=== PATIENT | male | born 1940 | race Hispanic/Latino ===

== ENCOUNTER 2019-01-07 15:20 | Emergency (ER) | payer MEDICARE ==
--- NOTE | 2019-01-07 16:30 | RAD ---
XR Hand Lt 3 View STANDARD History: Laceration Comparison: None. Findings: No acute fracture or malalignment. On the lateral radiograph there is a 2 x 5 mm linear rad iopacity at the volar wrist although likely extrinsic to patient versus a surgical clip. Mild vascular calcifications. Impression: No acute osseous abnormality.
[2019-01-07] MEDS ORDERED: Adacel (T-DAP) 0.5 ML SYRINGE ONE (19:01)
[2019-01-07] MEDS ORDERED: Bacitracin 1 PK ONE (19:09)
== END 2019-01-07 19:19 | disposition home or self-care (01) ==
LOC: ERS 15:20
DX: S61.412A Laceration without foreign body of left hand, initial encounter (principal); I25.10 Atherosclerotic heart disease of native coronary artery without angina pectoris; I11.0 Hypertensive heart disease with heart failure; I50.9 Heart failure, unspecified; E11.9 Type 2 diabetes mellitus without complications; E78.5 Hyperlipidemia, unspecified; E78.00 Pure hypercholesterolemia, unspecified; K21.9 Gastro-esophageal reflux disease without esophagitis; W45.8XXA Other foreign body or object entering through skin, initial encounter
CPT/HCPCS: 12002; 90715

== ENCOUNTER 2020-05-11 21:42 | Inpatient (IN) | payer OTHER, MEDICARE ==
[~2020-05-11 21:42] MED LIST: Iopamidol-370 76% 500 ML 1 ML ONE
[2020-05-11 22:10] LABS: #Eosinphils 0.2 thou/uL (0.0-0.7); #Lymphocytes 1.4 thou/uL (1.20-3.40); #Monocytes 0.6 thou/uL (0.11-0.59); #Neutrophils 3.8 thou/uL (1.40-6.50); %Basophils 0.2 % (0.0-1.0); %Lymphocytes 23.1 % (21.0-51.0); %Monocytes 9.7 % (0.0-10.0); Hemoglobin 12.9 g/dL (14.0-18.0); Mean Corpuscular HGB CONC 35.2 g/dL (32.0-36.0); Mean Corpuscular Hemoglobin 33.8 pg (27.0-31.0); Mean Corpuscular Volume 96.1 fL (78.0-98.0); Mean Platelet Volume 9.3 fL (7.4-10.4); Platelet Count 176 thou/uL (130-400); RBC Distribution Width 11.4 % (11.5-14.5); Red Blood Cell (RBC) Count 3.82 mill/uL (4.70-6.10); White Blood Cell (WBC) Count 6.1 thou/uL (4.8-10.8)
[2020-05-11 22:16] LABS: PTT 27.4 sec (22.9-36.1); Prothrombin Time 13.5 sec (12.0-14.7)
[2020-05-11 22:29] LABS: ALT (SGPT) 18 U/L (8-55); AST (SGOT) 19 U/L (5-34); Albumin 3.8 g/dL (3.4-4.8); Alkaline Phosphatase 105 U/L (40-110); Anion Gap 13 mmol/L (10-20); BUN (Urea Nitrogen) 17 mg/dL (8.4-25.7); Bilirubin, Total 0.4 mg/dL (0.2-1.2); Calc. Creatinine Clearance 0 mL/min (70-130); Calcium 8.9 mg/dL (7.8-10.44); Carbon Dioxide 24 mmol/L (23-31); Chloride 102 mmol/L (98-107); Globulin 3.4 g/dL (2.4-3.5); Glucose 292 mg/dL (83-110); Potassium 4.4 mmol/L (3.5-5.1); Protein, Total 7.2 g/dL (5.8-8.1); Sodium 135 mmol/L (136-145)
[2020-05-11 22:58] LABS: CKMB 1.7 ng/mL (0-6.6)
[2020-05-12 00:03] LABS: SARS-CoV-2 NAA Rapid Test Not Detected (NotDetected)
[2020-05-12 00:18] LABS: Glucose 193 mg/dL (83-110)
[2020-05-12 02:26] VITALS: BMI 27.5
[2020-05-12] MEDS ORDERED: Ondansetron PF 4 MG/2 ML Vial IVP PRN (03:20)
[2020-05-12] MEDS ORDERED: Ondansetron ODT 4 MG TAB PO PRN (03:20)
[2020-05-12] MEDS ORDERED: Acetaminophen 325 MG TAB PO PRN (03:20)
[2020-05-12] MEDS ORDERED: Atorvastatin Calcium 40 MG TAB PO SCH (03:23)
[2020-05-12] MEDS ORDERED: Dextrose 50% Abboject 50 ML SYRINGE SLOW IVP PRN (04:22)
[2020-05-12] MEDS ORDERED: Dextrose 5% in Water 1,000 ML IV PRN (04:22)
[2020-05-12] MEDS ORDERED: HumaLOG 300 UNITS/3 ML VIAL SC PRN (04:22)
[2020-05-12] MEDS ORDERED: Clopidogrel Bisulfate 75 MG TAB PO SCH (04:30)
[2020-05-12 04:44] LABS: #Eosinphils 0.2 thou/uL (0.0-0.7); #Lymphocytes 1.1 thou/uL (1.20-3.40); #Monocytes 0.6 thou/uL (0.11-0.59); #Neutrophils 5.5 thou/uL (1.40-6.50); %Basophils 0.1 % (0.0-1.0); %Eosinophils 3.2 % (0.0-10.0); %Lymphocytes 15.2 % (21.0-51.0); %Monocytes 7.5 % (0.0-10.0); %Neutrophils 73.9 % (42.0-75.0); Hemoglobin 12.8 g/dL (14.0-18.0); Mean Corpuscular HGB CONC 35.3 g/dL (32.0-36.0); Mean Corpuscular Hemoglobin 33.8 pg (27.0-31.0); Mean Corpuscular Volume 95.9 fL (78.0-98.0); Mean Platelet Volume 9.5 fL (7.4-10.4); Platelet Count 177 thou/uL (130-400); RBC Distribution Width 11.4 % (11.5-14.5); White Blood Cell (WBC) Count 7.5 thou/uL (4.8-10.8)
[2020-05-12 04:49] LABS: Hemoglobin A1c 8.6 % (4.0-6.0)
[2020-05-12 05:07] LABS: Anion Gap 12 mmol/L (10-20); BUN (Urea Nitrogen) 15 mg/dL (8.4-25.7); Calc. Creatinine Clearance 57 mL/min (70-130); Calcium 8.9 mg/dL (7.8-10.44); Carbon Dioxide 25 mmol/L (23-31); Cardiac Risk 5.3 (Less than 4.5); Chloride 104 mmol/L (98-107); Cholesterol 171 mg/dl (< 200 Desired); Glucose 144 mg/dL (83-110); HDL Cholesterol 32 mg/dL (>60 Neg Risk); LDL Cholesterol, Calculated 115 mg/dL; Potassium 4.1 mmol/L (3.5-5.1); Sodium 137 mmol/L (136-145); Triglycerides 122 mg/dL (Less than 150)
[2020-05-12] MEDS ORDERED: Aspirin 81 mg Enteric Coated Tablet PO SCH (09:00)
[2020-05-12] MEDS ORDERED: Enoxaparin Sodium 40 MG/0.4 ML SYRINGE SC SCH (09:00)
[2020-05-12] MEDS ORDERED: Loratadine 10 MG TAB PO PRN (09:26)
[2020-05-12] MEDS: Escitalopram Oxalate 20 mg Tablet PO SCH (09:48)
[2020-05-12] MEDS: HumaLOG 300 UNITS/3 ML VIAL SC PRN ×3 (12:49→22:14)
[2020-05-12] MEDS ORDERED: Carvedilol 6.25 MG TAB PO SCH (13:15)
[2020-05-12] MEDS: Carvedilol 6.25 MG TAB PO SCH (13:27)
[2020-05-12] MEDS: Atorvastatin Calcium 40 MG TAB PO SCH (20:03)
[2020-05-13 05:02] LABS: #Eosinphils 0.2 thou/uL (0.0-0.7); #Lymphocytes 1.3 thou/uL (1.20-3.40); #Monocytes 0.6 thou/uL (0.11-0.59); %Basophils 0.5 % (0.0-1.0); %Eosinophils 2.9 % (0.0-10.0); %Monocytes 7.9 % (0.0-10.0); %Neutrophils 70.7 % (42.0-75.0); Hemoglobin 12.5 g/dL (14.0-18.0); Mean Corpuscular HGB CONC 34.7 g/dL (32.0-36.0); Mean Corpuscular Hemoglobin 33.5 pg (27.0-31.0); Mean Corpuscular Volume 96.4 fL (78.0-98.0); Mean Platelet Volume 9.6 fL (7.4-10.4); Platelet Count 170 thou/uL (130-400); RBC Distribution Width 11.6 % (11.5-14.5); Red Blood Cell (RBC) Count 3.73 mill/uL (4.70-6.10); White Blood Cell (WBC) Count 7.1 thou/uL (4.8-10.8)
[2020-05-13 05:23] LABS: Anion Gap 12 mmol/L (10-20); BUN (Urea Nitrogen) 21 mg/dL (8.4-25.7); Calc. Creatinine Clearance 46 mL/min (70-130); Calcium 8.7 mg/dL (7.8-10.44); Carbon Dioxide 25 mmol/L (23-31); Chloride 103 mmol/L (98-107); Glucose 263 mg/dL (83-110); Sodium 136 mmol/L (136-145)
[2020-05-13] MEDS: HumaLOG 300 UNITS/3 ML VIAL SC PRN ×4 (05:45→21:52)
[2020-05-13] MEDS ORDERED: Aspirin 325 MG TAB PO SCH (09:00)
[2020-05-13] MEDS ORDERED: Clopidogrel Bisulfate 75 MG TAB PO SCH (09:00)
[2020-05-13] MEDS: Aspirin 325 MG TAB PO SCH (09:54)
[2020-05-13] MEDS: Carvedilol 6.25 MG TAB PO SCH ×2 (09:55→17:36)
[2020-05-13] MEDS: Escitalopram Oxalate 20 mg Tablet PO SCH (09:55)
[2020-05-13] MEDS: Clopidogrel Bisulfate 75 MG TAB PO SCH (09:55)
[2020-05-13] MEDS: Alogliptin 6.25 MG TAB PO SCH (10:14)
[2020-05-13] MEDS ORDERED: Sodium Chloride 0.9% 1,000 ML IV SCH (17:00)
[2020-05-13] MEDS: Atorvastatin Calcium 40 MG TAB PO SCH (21:46)
[2020-05-14] MEDS: HumaLOG 300 UNITS/3 ML VIAL SC PRN ×4 (06:20→21:27)
[2020-05-14] MEDS: Carvedilol 6.25 MG TAB PO SCH ×2 (08:34→16:42)
[2020-05-14] MEDS: Alogliptin 6.25 MG TAB PO SCH (08:35)
[2020-05-14] MEDS: Escitalopram Oxalate 20 mg Tablet PO SCH (08:35)
[2020-05-14] MEDS: Clopidogrel Bisulfate 75 MG TAB PO SCH (08:35)
[2020-05-14] MEDS: Aspirin 325 MG TAB PO SCH (08:35)
[2020-05-14] MEDS: Lantus 1000 UNITS/10 ML VIAL SC SCH (09:52)
[2020-05-14] MEDS: Atorvastatin Calcium 40 MG TAB PO SCH (21:26)
[2020-05-15] MEDS: HumaLOG 300 UNITS/3 ML VIAL SC PRN ×3 (06:14→19:53)
[2020-05-15] MEDS: Alogliptin 6.25 MG TAB PO SCH (09:01)
[2020-05-15] MEDS: Carvedilol 6.25 MG TAB PO SCH ×2 (09:01→16:41)
[2020-05-15] MEDS: Escitalopram Oxalate 20 mg Tablet PO SCH (09:01)
[2020-05-15] MEDS: Lisinopril 10 MG TAB PO SCH (09:02)
[2020-05-15] MEDS: Aspirin 325 MG TAB PO SCH (09:02)
[2020-05-15] MEDS: Clopidogrel Bisulfate 75 MG TAB PO SCH (09:02)
[2020-05-15] MEDS: Lantus 1000 UNITS/10 ML VIAL SC SCH (09:03)
[2020-05-15 14:01] LABS: Anion Gap 11 mmol/L (10-20); BUN (Urea Nitrogen) 21 mg/dL (8.4-25.7); Calc. Creatinine Clearance 50 mL/min (70-130); Calcium 9.1 mg/dL (7.8-10.44); Carbon Dioxide 27 mmol/L (23-31); Chloride 104 mmol/L (98-107); Glucose 228 mg/dL (83-110); Sodium 138 mmol/L (136-145)
[2020-05-15] MEDS: Polyethylene Glycol 3350 17 GM Packet PO PRN (14:54)
[2020-05-15] MEDS: Atorvastatin Calcium 40 MG TAB PO SCH (19:53)
[2020-05-16] MEDS: HumaLOG 300 UNITS/3 ML VIAL SC PRN ×4 (05:48→21:40)
[2020-05-16] MEDS: Carvedilol 6.25 MG TAB PO SCH ×2 (09:18→17:18)
[2020-05-16] MEDS: Lisinopril 10 MG TAB PO SCH (09:19)
[2020-05-16] MEDS: Escitalopram Oxalate 20 mg Tablet PO SCH (09:19)
[2020-05-16] MEDS: Lantus 1000 UNITS/10 ML VIAL SC SCH (09:20)
[2020-05-16] MEDS: Clopidogrel Bisulfate 75 MG TAB PO SCH (09:20)
[2020-05-16] MEDS: Aspirin 325 MG TAB PO SCH (09:20)
[2020-05-16] MEDS: Alogliptin 6.25 MG TAB PO SCH (09:20)
[2020-05-16] MEDS: Polyethylene Glycol 3350 17 GM Packet PO PRN (14:24)
[2020-05-16] MEDS: Atorvastatin Calcium 40 MG TAB PO SCH (20:03)
[2020-05-17] MEDS: HumaLOG 300 UNITS/3 ML VIAL SC PRN ×2 (06:03→16:37)
[2020-05-17] MEDS: Alogliptin 6.25 MG TAB PO SCH (08:46)
[2020-05-17] MEDS: Lisinopril 10 MG TAB PO SCH (08:46)
[2020-05-17] MEDS: Aspirin 325 MG TAB PO SCH (08:47)
[2020-05-17] MEDS: Carvedilol 6.25 MG TAB PO SCH ×2 (08:47→16:38)
[2020-05-17] MEDS: Escitalopram Oxalate 20 mg Tablet PO SCH (08:48)
[2020-05-17] MEDS: Clopidogrel Bisulfate 75 MG TAB PO SCH (08:49)
[2020-05-17] MEDS: Lantus 1000 UNITS/10 ML VIAL SC SCH (08:50)
[2020-05-17 10:44] LABS: #Eosinphils 0.2 thou/uL (0.0-0.7); #Monocytes 0.6 thou/uL (0.11-0.59); #Neutrophils 6.3 thou/uL (1.40-6.50); %Basophils 0.4 % (0.0-1.0); %Eosinophils 2.3 % (0.0-10.0); %Lymphocytes 12.6 % (21.0-51.0); %Monocytes 7.1 % (0.0-10.0); %Neutrophils 77.6 % (42.0-75.0); Hemoglobin 12.8 g/dL (14.0-18.0); Mean Corpuscular HGB CONC 34.3 g/dL (32.0-36.0); Mean Corpuscular Hemoglobin 33.5 pg (27.0-31.0); Mean Corpuscular Volume 97.8 fL (78.0-98.0); Mean Platelet Volume 9.6 fL (7.4-10.4); Platelet Count 164 thou/uL (130-400); RBC Distribution Width 11.5 % (11.5-14.5); Red Blood Cell (RBC) Count 3.82 mill/uL (4.70-6.10); White Blood Cell (WBC) Count 8.2 thou/uL (4.8-10.8)
[2020-05-17 11:04] LABS: Anion Gap 11 mmol/L (10-20); BUN (Urea Nitrogen) 25 mg/dL (8.4-25.7); Calc. Creatinine Clearance 51 mL/min (70-130); Calcium 8.9 mg/dL (7.8-10.44); Carbon Dioxide 28 mmol/L (23-31); Chloride 106 mmol/L (98-107); Glucose 105 mg/dL (83-110); Potassium 3.9 mmol/L (3.5-5.1); Sodium 141 mmol/L (136-145)
[2020-05-17] MEDS: Baclofen 10 MG TAB PO SCH (21:13)
[2020-05-17] MEDS: Atorvastatin Calcium 40 MG TAB PO SCH (21:13)
[2020-05-18] MEDS: Aspirin 325 MG TAB PO SCH (08:20)
[2020-05-18] MEDS: Escitalopram Oxalate 20 mg Tablet PO SCH (08:21)
[2020-05-18] MEDS: Carvedilol 6.25 MG TAB PO SCH ×2 (08:21→16:59)
[2020-05-18] MEDS: Lisinopril 10 MG TAB PO SCH (08:23)
[2020-05-18] MEDS: Clopidogrel Bisulfate 75 MG TAB PO SCH (08:23)
[2020-05-18] MEDS: Baclofen 10 MG TAB PO SCH ×2 (08:24→20:56)
[2020-05-18] MEDS: Alogliptin 6.25 MG TAB PO SCH (08:24)
[2020-05-18] MEDS: Lantus 1000 UNITS/10 ML VIAL SC SCH (08:25)
[2020-05-18] MEDS: HumaLOG 300 UNITS/3 ML VIAL SC PRN ×3 (12:16→22:05)
[2020-05-18] MEDS: Atorvastatin Calcium 40 MG TAB PO SCH (20:55)
[2020-05-19] MEDS: Carvedilol 6.25 MG TAB PO SCH ×2 (09:18→16:24)
[2020-05-19] MEDS: Escitalopram Oxalate 20 mg Tablet PO SCH (09:18)
[2020-05-19] MEDS: Baclofen 10 MG TAB PO SCH ×2 (09:18→20:34)
[2020-05-19] MEDS: Lisinopril 10 MG TAB PO SCH (09:19)
[2020-05-19] MEDS: Aspirin 325 MG TAB PO SCH (09:19)
[2020-05-19] MEDS: Lantus 1000 UNITS/10 ML VIAL SC SCH (09:19)
[2020-05-19] MEDS: Clopidogrel Bisulfate 75 MG TAB PO SCH (09:19)
[2020-05-19] MEDS: Alogliptin 6.25 MG TAB PO SCH (10:35)
[2020-05-19] MEDS: HumaLOG 300 UNITS/3 ML VIAL SC PRN ×2 (17:30→21:46)
[2020-05-19] MEDS: Atorvastatin Calcium 40 MG TAB PO SCH (20:34)
[2020-05-20] MEDS: Baclofen 10 MG TAB PO SCH ×2 (09:26→21:09)
[2020-05-20] MEDS: Lisinopril 10 MG TAB PO SCH (09:27)
[2020-05-20] MEDS: Clopidogrel Bisulfate 75 MG TAB PO SCH (09:27)
[2020-05-20] MEDS: Aspirin 325 MG TAB PO SCH (09:27)
[2020-05-20] MEDS: Carvedilol 6.25 MG TAB PO SCH ×2 (09:27→17:04)
[2020-05-20] MEDS: Escitalopram Oxalate 20 mg Tablet PO SCH (09:28)
[2020-05-20] MEDS: Lantus 1000 UNITS/10 ML VIAL SC SCH (09:28)
[2020-05-20] MEDS: Alogliptin 6.25 MG TAB PO SCH (11:54)
[2020-05-20] MEDS ORDERED: Alogliptin 25 MG TAB PO SCH (12:00)
[2020-05-20 20:02] LABS: Magnesium 1.8 mg/dL (1.6-2.6)
[2020-05-20] MEDS: Atorvastatin Calcium 40 MG TAB PO SCH (21:09)
[2020-05-20] MEDS ORDERED: Magnesium 2 GM/50 ML 2 GM in Premix Bag 1 BAG IVPB SCH (21:15)
[2020-05-21] MEDS: Carvedilol 6.25 MG TAB PO SCH (11:06)
[2020-05-21] MEDS: Aspirin 325 MG TAB PO SCH (11:06)
[2020-05-21] MEDS: Baclofen 10 MG TAB PO SCH ×2 (11:06→19:56)
[2020-05-21] MEDS: Alogliptin 25 MG TAB PO SCH (11:07)
[2020-05-21] MEDS: Lisinopril 10 MG TAB PO SCH (11:07)
[2020-05-21] MEDS: Clopidogrel Bisulfate 75 MG TAB PO SCH (11:07)
[2020-05-21] MEDS: Escitalopram Oxalate 20 mg Tablet PO SCH (11:07)
[2020-05-21] MEDS: Lantus 1000 UNITS/10 ML VIAL SC SCH (12:34)
[2020-05-21] MEDS: Carvedilol 25 MG TAB PO SCH (17:53)
[2020-05-21] MEDS: HumaLOG 300 UNITS/3 ML VIAL SC PRN ×2 (17:53→21:08)
[2020-05-21] MEDS: Atorvastatin Calcium 40 MG TAB PO SCH (19:56)
[2020-05-22] MEDS: Alogliptin 25 MG TAB PO SCH (08:45)
[2020-05-22] MEDS: Escitalopram Oxalate 20 mg Tablet PO SCH (08:46)
[2020-05-22] MEDS: Clopidogrel Bisulfate 75 MG TAB PO SCH (08:46)
[2020-05-22] MEDS: Baclofen 10 MG TAB PO SCH (08:46)
[2020-05-22] MEDS: Aspirin 325 MG TAB PO SCH (08:46)
[2020-05-22] MEDS: Lisinopril 10 MG TAB PO SCH (08:46)
[2020-05-22] MEDS: Carvedilol 25 MG TAB PO SCH (08:46)
[2020-05-22] MEDS: Lantus 1000 UNITS/10 ML VIAL SC SCH (08:48)
[2020-05-22] MEDS: HumaLOG 300 UNITS/3 ML VIAL SC PRN (11:45)
[2020-05-22 15:38] VITALS: BP 137/79; TEMP 97.6
== END 2020-05-22 17:31 | DRG 65 ==
LOC: ERS 21:42 → 2NO 23:24 → 2SE 05-12 15:14
PROVIDERS: ADMIT Student in an Organized Health Care Education/Training Program; ATTEND Internal Medicine
DX: I63.9 Cerebral infarction, unspecified (principal); G81.94 Hemiplegia, unspecified affecting left nondominant side; Z20.822 Contact with and (suspected) exposure to COVID-19; I42.9 Cardiomyopathy, unspecified; N17.9 Acute kidney failure, unspecified; I47.1 Supraventricular tachycardia; E87.1 Hypo-osmolality and hyponatremia; F32.9 Major depressive disorder, single episode, unspecified; I50.9 Heart failure, unspecified; K21.9 Gastro-esophageal reflux disease without esophagitis; R29.703 NIHSS score 3; D64.9 Anemia, unspecified; R29.810 Facial weakness; R91.1 Solitary pulmonary nodule; I25.10 Atherosclerotic heart disease of native coronary artery without angina pectoris; E78.5 Hyperlipidemia, unspecified; E78.00 Pure hypercholesterolemia, unspecified; R47.1 Dysarthria and anarthria; E11.51 Type 2 diabetes mellitus with diabetic peripheral angiopathy without gangrene; E11.22 Type 2 diabetes mellitus with diabetic chronic kidney disease; N18.30 Chronic kidney disease, stage 3 unspecified; I65.22 Occlusion and stenosis of left carotid artery; Z79.82 Long term (current) use of aspirin; Z79.4 Long term (current) use of insulin; Z79.899 Other long term (current) drug therapy; Z95.1 Presence of aortocoronary bypass graft
CPT/HCPCS: 0240U; 36415; 36416; 70450; 70496; 70498; 70551; 71045; 71260; 80048; 80053; 80061; 82553; 83036; 83735; 84132; 84484; 85025; 85610; 85730; 93005; 93306; 95712; 95819; 95957; J1650; J1815; J3475; Q9967

== ENCOUNTER 2023-08-28 20:59 | Inpatient (IN) | payer MEDICARE, OTHER ==
[~2023-08-28 20:59] MED LIST changes: +GASTROGRAFIN 30 ML BOT ONE; +Iopamidol 370 76% 100 ML VIAL ONE; -Iopamidol-370 76% 500 ML 1 ML ONE
[2023-08-28 21:17] LABS: Bacteria/HPF None Seen HPF (None Seen); Bilirubin Negative (Negative); Blood, Urine Negative (Negative); CAUTI Indications for Culture Pelvic or flank pain; Clarity Clear (Clear); Glucose, Urine (Dipstick) Greater than 1000 mg/dL (Negative); Ketone, Urine Negative (Negative); Leukocyte Negative Leu/uL (Negative); Nitrite Negative (Negative); Protein, Urine (Dipstick) 20 mg/dL (Neg-Trace); RBC/HPF 0-3 HPF (0-3); Specific Gravity, Urine 1.022 (1.002-1.036); Squamous Epithelial None Seen HPF (0-3); Urobilinogen Normal mg/dL (Less than 2); WBC/HPF 0-3 HPF (0-3); pH, Urine 5.5 (5.0-9.0)
[2023-08-28 21:18] LABS: Urine Culture Reflex No No
[2023-08-28] MEDS ORDERED: Ondansetron PF 4 MG/2 ML Vial ONE (22:17)
[2023-08-28 22:37] LABS: #Basophils 0.03 10x3/uL (0.0-0.2); %Basophils 0.4 % (0.0-1.0); %Eosinophils 4.4 % (0.0-10.0); %Lymphocytes 15.4 % (21.0-51.0); %Monocytes 7.9 % (0.0-10.0); %Neutrophils 71.5 % (42.0-75.0); Hematocrit 41.3 % (42.0-52.0); Hemoglobin 14.3 g/dL (14.0-18.0); Mean Corpuscular HGB CONC 34.6 g/dL (32.0-36.0); Mean Corpuscular Hemoglobin 31.4 pg (27.0-31.0); Mean Corpuscular Volume 90.6 fL (78.0-98.0); Mean Platelet Volume 11.6 fL (7.4-10.4); Platelet Count 232 10x3/uL (130-400); RBC Distribution Width 13.7 % (11.5-14.5); Red Blood Cell (RBC) Count 4.56 mill/uL (4.70-6.10)
[2023-08-28 23:53] LABS: ALT (SGPT) 10 U/L (8-55); AST (SGOT) 14 U/L (5-34); Albumin 3.2 g/dL (3.4-4.8); Alkaline Phosphatase 107 U/L (40-110); Anion Gap 13 mmol/L (10-20); BUN (Urea Nitrogen) 23 mg/dL (8.4-25.7); Bilirubin, Total 0.4 mg/dL (0.2-1.2); Calc. Creatinine Clearance 0 mL/min (70-130); Calcium 9.2 mg/dL (7.8-10.44); Carbon Dioxide 24 mmol/L (23-31); Chloride 106 mmol/L (98-107); Estimated GFR 51; Globulin 4.2 g/dL (2.4-3.5); Glucose 122 mg/dL (83-110); Lipase 36 U/L (8-78); Protein, Total 7.4 g/dL (5.8-8.1); Sodium 139 mmol/L (136-145)
[2023-08-29] MEDS ORDERED: Morphine 4 MG/ML VIAL ONE (00:32)
[2023-08-29 01:16] LABS: INR-International Normal Ratio 1.1; Prothrombin Time 13.7 sec (12.0-14.7)
[2023-08-29] MEDS ORDERED: Heparin 5,000 UNITS/ML VIAL ONE (01:37)
[2023-08-29] MEDS ORDERED: Heparin 25,000 units/D5W 500 ML ONE (01:38)
[2023-08-29 04:35] VITALS: BMI 26.6
[2023-08-29] MEDS ORDERED: Benzonatate 100 MG CAP PO PRN (05:03)
[2023-08-29] MEDS ORDERED: Loratadine 10 MG TAB PO PRN (05:03)
[2023-08-29] MEDS ORDERED: Betamethasone 0.1% Cream 15 GM TUBE TOP PRN (05:03)
[2023-08-29] MEDS ORDERED: Heparin 25,000 units/D5W 500 ML IVPB SCH (05:15)
[2023-08-29] MEDS ORDERED: Heparin 10,000 UNITS/ 10 ML VIAL SLOW IVP SCH (05:15)
[2023-08-29] MEDS ORDERED: Ondansetron ODT 4 MG TAB PO PRN (05:35)
[2023-08-29] MEDS ORDERED: Acetaminophen 650 MG Suppository PR PRN (05:35)
[2023-08-29] MEDS ORDERED: Acetaminophen 325 MG TAB PO PRN (05:35)
[2023-08-29] MEDS ORDERED: Ondansetron PF 4 MG/2 ML Vial IVP PRN (05:35)
[2023-08-29 07:35] LABS: Hematocrit 36.2 % (42.0-52.0); Platelet Count 182 10x3/uL (130-400)
[2023-08-29 08:00] LABS: Hemoglobin A1c 8.9 % (4.0-6.0)
[2023-08-29] MEDS ORDERED: Pantoprazole DR 40 MG TAB PO SCH (08:00)
[2023-08-29 08:23] LABS: PTT Greater than 250.0 sec (22.9-36.1)
[2023-08-29] MEDS ORDERED: Famotidine 20 MG TAB PO SCH (09:00)
[2023-08-29] MEDS ORDERED: Famotidine/PF 20 mg/2ml Vial SLOW IVP SCH (09:00)
[2023-08-29] MEDS ORDERED: Clopidogrel Bisulfate 75 MG TAB PO SCH (09:00)
[2023-08-29] MEDS: Ezetimibe 10 MG TAB PO SCH (09:07)
[2023-08-29] MEDS: Lisinopril 10 MG TAB PO SCH (09:07)
[2023-08-29] MEDS: Empagliflozin 25 MG TAB PO SCH (09:07)
[2023-08-29] MEDS: Ferrous Gluconate 324 MG TAB PO SCH (09:08)
[2023-08-29] MEDS: Aspirin Chewable 81 MG TAB PO SCH (09:08)
[2023-08-29] MEDS: Magnesium Oxide 400 MG TAB PO SCH (09:08)
[2023-08-29] MEDS: Carvedilol 25 MG TAB PO SCH (09:09)
[2023-08-29] MEDS: Escitalopram Oxalate 10 mg Tablet PO SCH (09:10)
[2023-08-29] MEDS: Insulin Glargine 30 UNITS/0.3 ML VIAL SC SCH (09:11)
[2023-08-29] MEDS: CO Q-10 CAPSULE 100 MG PO SCH (10:58)
[2023-08-29] MEDS: Pantoprazole 40 MG VIAL IVP SCH (10:58)
[2023-08-29] MEDS: Atorvastatin Calcium 40 MG TAB PO SCH (10:59)
[2023-08-30 04:10] LABS: #Basophils 0.03 10x3/uL (0.0-0.2); %Basophils 0.5 % (0.0-1.0); %Eosinophils 5.3 % (0.0-10.0); %Lymphocytes 14.6 % (21.0-51.0); %Monocytes 9.5 % (0.0-10.0); %Neutrophils 69.9 % (42.0-75.0); Hematocrit 35.6 % (42.0-52.0); Hemoglobin 11.9 g/dL (14.0-18.0); Mean Corpuscular HGB CONC 33.4 g/dL (32.0-36.0); Mean Corpuscular Volume 92.7 fL (78.0-98.0); Mean Platelet Volume 11.2 fL (7.4-10.4); Platelet Count 196 10x3/uL (130-400); RBC Distribution Width 13.5 % (11.5-14.5); Red Blood Cell (RBC) Count 3.84 mill/uL (4.70-6.10)
[2023-08-30 04:51] LABS: Anion Gap 12 mmol/L (10-20); BUN (Urea Nitrogen) 17 mg/dL (8.4-25.7); Calc. Creatinine Clearance 49 mL/min (70-130); Calcium 8.7 mg/dL (7.8-10.44); Carbon Dioxide 25 mmol/L (23-31); Chloride 107 mmol/L (98-107); Estimated GFR 54; Glucose 54 mg/dL (83-110); Magnesium 2.1 mg/dL (1.6-2.6); Potassium 3.7 mmol/L (3.5-5.1); Sodium 140 mmol/L (136-145)
[2023-08-30] MEDS ORDERED: Glucagon 1 MG/ML KIT IM PRN (07:30)
[2023-08-30] MEDS ORDERED: Dextrose 50% Abboject 50 ML SYRINGE SLOW IVP PRN (07:30)
[2023-08-30] MEDS ORDERED: Dextrose 5% in Water 1,000 ML IV PRN (07:30)
[2023-08-30] MEDS: Senokot S 8.6-50 MG TAB PO SCH (09:06)
[2023-08-30] MEDS: Polyethylene Glycol 3350 17 GM Packet PO SCH (09:07)
[2023-08-30 09:16] LABS: Troponin I 0.012 ng/mL (< 0.028)
[2023-08-30 14:11] LABS: Troponin I 0.019 ng/mL (< 0.028)
[2023-08-30] MEDS: GoLYTELY 4,000 ml Bottle PO SCH (17:32)
[2023-08-31 05:10] LABS: #Basophils 0.03 10x3/uL (0.0-0.2); %Basophils 0.4 % (0.0-1.0); %Eosinophils 4.3 % (0.0-10.0); %Lymphocytes 13.8 % (21.0-51.0); %Monocytes 8.5 % (0.0-10.0); %Neutrophils 72.7 % (42.0-75.0); Hematocrit 36.8 % (42.0-52.0); Hemoglobin 12.3 g/dL (14.0-18.0); Mean Corpuscular HGB CONC 33.4 g/dL (32.0-36.0); Mean Corpuscular Hemoglobin 30.7 pg (27.0-31.0); Mean Corpuscular Volume 91.8 fL (78.0-98.0); Mean Platelet Volume 11.2 fL (7.4-10.4); Platelet Count 199 10x3/uL (130-400); RBC Distribution Width 13.2 % (11.5-14.5); Red Blood Cell (RBC) Count 4.01 mill/uL (4.70-6.10)
[2023-08-31 05:28] LABS: ALT (SGPT) 9 U/L (8-55); AST (SGOT) 15 U/L (5-34); Alkaline Phosphatase 101 U/L (40-110); Anion Gap 16 mmol/L (10-20); BUN (Urea Nitrogen) 17 mg/dL (8.4-25.7); Bilirubin, Total 0.6 mg/dL (0.2-1.2); Calc. Creatinine Clearance 52 mL/min (70-130); Carbon Dioxide 26 mmol/L (23-31); Chloride 101 mmol/L (98-107); Estimated GFR 58; Globulin 3.9 g/dL (2.4-3.5); Glucose 130 mg/dL (83-110); Magnesium 2.2 mg/dL (1.6-2.6); Potassium 4.3 mmol/L (3.5-5.1); Protein, Total 6.9 g/dL (5.8-8.1); Sodium 139 mmol/L (136-145)
[2023-08-31] MEDS ORDERED: Lidocaine 1% PF 5 ML VIAL ONE (07:22)
[2023-08-31] MEDS ORDERED: PROPOFOL 40 ML ONE (07:22)
[2023-08-31] MEDS ORDERED: GLYCOPYRROLATE/PF 0.2 MG/ML VIAL ONE (11:10)
[2023-08-31] MEDS ORDERED: PHENYLEPHRINE-NS 100 MCG/ML 10 ML SYRINGE ONE ×2 (11:33→11:49)
[2023-08-31] MEDS: Polyethylene Glycol 3350 17 GM Packet PO SCH (13:01)
[2023-08-31] MEDS ORDERED: Dextrose 5% in Water 1,000 ML IV PRN (17:19)
[2023-08-31] MEDS ORDERED: Dextrose 50% Abboject 50 ML SYRINGE SLOW IVP PRN (17:19)
[2023-08-31] MEDS ORDERED: Glucagon 1 MG/ML KIT IM PRN (17:19)
[2023-08-31] MEDS ORDERED: Insulin Lispro 100 UNIT/ML 10 ML VIAL SC PRN (17:30)
[2023-08-31] MEDS: Insulin Lispro 100 UNIT/ML 10 ML VIAL SC PRN (18:49)
[2023-09-01 08:40] VITALS: TEMP 98.4
[2023-09-01] MEDS: Pantoprazole DR 40 MG TAB PO SCH (10:09)
[2023-09-01 11:54] VITALS: BP 166/78
== END 2023-09-01 12:19 | disposition home or self-care (01) | DRG 394 ==
LOC: ERS 20:59 → 2SE 08-29 02:36 → OBSVTOIN 08-30 13:09
PROVIDERS: ADMIT Student in an Organized Health Care Education/Training Program; ATTEND Family Medicine
PROC: 0DB68ZX Excision of Stomach, Via Natural or Artificial Opening Endoscopic, Diagnostic (ICD-10-PCS; principal; 2023-08-31)
PROC: 0DBK8ZZ Excision of Ascending Colon, Via Natural or Artificial Opening Endoscopic (ICD-10-PCS; 2023-08-31)
PROC: 0DBL8ZZ Excision of Transverse Colon, Via Natural or Artificial Opening Endoscopic (ICD-10-PCS; 2023-08-31)
PROC: 0DB58ZX Excision of Esophagus, Via Natural or Artificial Opening Endoscopic, Diagnostic (ICD-10-PCS; 2023-08-31)
DX: K55.069 Acute infarction of intestine, part and extent unspecified (principal); C34.11 Malignant neoplasm of upper lobe, right bronchus or lung; I50.22 Chronic systolic (congestive) heart failure; I11.0 Hypertensive heart disease with heart failure; E11.649 Type 2 diabetes mellitus with hypoglycemia without coma; I25.10 Atherosclerotic heart disease of native coronary artery without angina pectoris; K29.70 Gastritis, unspecified, without bleeding; K63.5 Polyp of colon; K55.20 Angiodysplasia of colon without hemorrhage; Z79.82 Long term (current) use of aspirin; Z79.899 Other long term (current) drug therapy; Z95.1 Presence of aortocoronary bypass graft; Z98.49 Cataract extraction status, unspecified eye; Z98.890 Other specified postprocedural states
CPT/HCPCS: 36415; 36416; 71045; 71250; 74177; 76705; 80048; 80053; 81001; 83036; 83605; 83690; 83735; 83880; 84484; 85014; 85018; 85025; 85049; 85610; 85730; 86850; 86900; 86901; 88305; 96374; 96375; 96376; C9113; G0378; J1644; J1815; J2270; J2405; J2704; J3490; Q9963; Q9967

== ENCOUNTER 2023-12-14 11:45 | Outpatient (CLI) | payer OTHER | END 2023-12-14 11:46 | disposition home or self-care (01) | LOC: PET 11:45 | PROVIDERS: ATTEND Internal Medicine Critical Care Medicine | DX: R91.8 Other nonspecific abnormal finding of lung field (principal); C79.51 Secondary malignant neoplasm of bone | CPT/HCPCS: 78815; A9552 ==

== ENCOUNTER 2023-12-22 08:23 | Day surgery (SDC) | payer OTHER ==
[2023-12-22 08:43] LABS: #Basophils Less than 0.03 10x3/uL (0.0-0.2); %Basophils 0.2 % (0.0-1.0); %Eosinophils 2.3 % (0.0-10.0); %Lymphocytes 5.2 % (21.0-51.0); Hematocrit 37.1 % (42.0-52.0); Mean Corpuscular HGB CONC 32.3 g/dL (32.0-36.0); Mean Corpuscular Hemoglobin 30.9 pg (27.0-31.0); Mean Corpuscular Volume 95.6 fL (78.0-98.0); Mean Platelet Volume 10.4 fL (7.4-10.4); Platelet Count 263 10x3/uL (130-400); RBC Distribution Width 14.1 % (11.5-14.5); Red Blood Cell (RBC) Count 3.88 mill/uL (4.70-6.10)
[2023-12-22 09:01] LABS: INR-International Normal Ratio 1.2; PTT 28.9 sec (22.9-36.1)
[2023-12-22] MEDS ORDERED: Sodium Bicarbonate 2.5 MEQ/5 ML SDV ONE (09:59)
[2023-12-22] MEDS ORDERED: fentaNYL 50 mcg/mL 1 mL Vial ONE (09:59)
[2023-12-22] MEDS ORDERED: Midazolam HCl 2 mg/2 ml Vial ONE (09:59)
[2023-12-22] MEDS ORDERED: Lidocaine 1% w/Epinephrine 1:100K 20 ML VIAL ONE (09:59)
[2023-12-22] MEDS ORDERED: FLU (Fluad Triv) TS24-25 (65UP)/MF59C/PF 45 MCG/0.5 ML Syringe IM ONE (14:00)
== END 2023-12-22 15:30 | disposition home or self-care (01) ==
LOC: CT 08:23
PROVIDERS: ATTEND Internal Medicine Critical Care Medicine
PROC: 0BBG3ZX Excision of Left Upper Lung Lobe, Percutaneous Approach, Diagnostic (ICD-10-PCS; principal; 2023-12-22)
DX: C34.11 Malignant neoplasm of upper lobe, right bronchus or lung (principal); R91.8 Other nonspecific abnormal finding of lung field; E78.00 Pure hypercholesterolemia, unspecified; I25.10 Atherosclerotic heart disease of native coronary artery without angina pectoris; I13.0 Hypertensive heart and chronic kidney disease with heart failure and stage 1 through stage 4 chronic kidney disease, or unspecified chronic kidney disease; N18.32 Chronic kidney disease, stage 3b; E11.22 Type 2 diabetes mellitus with diabetic chronic kidney disease; D63.1 Anemia in chronic kidney disease; I50.9 Heart failure, unspecified; E78.5 Hyperlipidemia, unspecified; Z79.82 Long term (current) use of aspirin; Z87.891 Personal history of nicotine dependence; Z79.4 Long term (current) use of insulin; Z79.899 Other long term (current) drug therapy; Z98.890 Other specified postprocedural states; Z79.02 Long term (current) use of antithrombotics/antiplatelets
CPT/HCPCS: 32408; 71045; 77012; 85025; 85610; 85730; 88305; 88333; 88334; 88341; 88342; 99152; 99153; J2250; J3010

== ENCOUNTER 2024-01-04 12:41 | Inpatient (IN) | payer MEDICARE, OTHER ==
[~2024-01-04 12:41] MED LIST changes: -GASTROGRAFIN 30 ML BOT ONE; -Iopamidol 370 76% 100 ML VIAL ONE; +Iopamidol-370 76% 500 ML MDV (1 ML CHARGE) ONE
[2024-01-04 13:19] LABS: Actual Bicarbonate (HCO3v) 24.7 mEq/L (22-28); Analyzer IN Cardio ER; Calcium, Ionized (venous) 1.13 mmol/L (1.16-1.32); Chloride (VBG) 98 mmol/L (98-106); Hematocrit-VBG 37 % (42.0-52.0); Hemoglobin (Hb) 12.7 g/dL (12.6-17.4); Potassium (VBG) 4.34 mmol/L (3.70-5.30); Sodium 134 mmol/L (133-146); pH (venous) 7.356 (7.32-7.43)
[2024-01-04 13:24] LABS: #Basophils 0.03 10x3/uL (0.0-0.2); %Basophils 0.4 % (0.0-1.0); %Eosinophils 1.7 % (0.0-10.0); %Monocytes 7.4 % (0.0-10.0); %Neutrophils 79.1 % (42.0-75.0); Hematocrit 35.9 % (42.0-52.0); Hemoglobin 11.8 g/dL (14.0-18.0); Mean Corpuscular HGB CONC 32.9 g/dL (32.0-36.0); Mean Corpuscular Hemoglobin 30.6 pg (27.0-31.0); Platelet Count 261 10x3/uL (130-400); RBC Distribution Width 13.7 % (11.5-14.5); Red Blood Cell (RBC) Count 3.86 mill/uL (4.70-6.10)
[2024-01-04 13:53] LABS: ALT (SGPT) 8 U/L (8-55); AST (SGOT) 12 U/L (5-34); Alkaline Phosphatase 143 U/L (40-110); Anion Gap 13 mmol/L (10-20); BUN (Urea Nitrogen) 26 mg/dL (8.4-25.7); Bilirubin, Total 0.5 mg/dL (0.2-1.2); Calc. Creatinine Clearance 0 mL/min (70-130); Calcium 8.8 mg/dL (7.8-10.44); Carbon Dioxide 25 mmol/L (23-31); Chloride 100 mmol/L (98-107); Estimated GFR 39; Globulin 4.8 g/dL (2.4-3.5); Glucose 430 mg/dL (83-110); Potassium 4.4 mmol/L (3.5-5.1); Protein, Total 7.8 g/dL (5.8-8.1); Sodium 134 mmol/L (136-145)
[2024-01-04 14:50] LABS: Bacteria/HPF None Seen HPF (None Seen); Bilirubin Negative (Negative); Blood, Urine Negative (Negative); CAUTI Indications for Culture Immunosuppressed; Clarity Clear (Clear); Glucose, Urine (Dipstick) Greater than 1000 mg/dL (Negative); Ketone, Urine Negative (Negative); Leukocyte Negative Leu/uL (Negative); Nitrite Negative (Negative); Protein, Urine (Dipstick) Negative (Neg-Trace); RBC/HPF None Seen HPF (0-3); Specific Gravity, Urine 1.026 (1.002-1.036); Squamous Epithelial 0-3 HPF (0-3); Urobilinogen 3 mg/dL (Less than 2); WBC/HPF 0-3 HPF (0-3); pH, Urine 5.5 (5.0-9.0)
[2024-01-04 14:54] LABS: Urine Culture Reflex No No; Urine Culture Reflex Yes Yes
[2024-01-04 15:12] LABS: Troponin I 0.033 ng/mL (< 0.028)
[2024-01-04] MEDS ORDERED: Aspirin Chewable 81 MG TAB ONE (15:29)
[2024-01-04] MEDS ORDERED: Calcium Carbonate 500 MG ChewTAB PO PRN (17:24)
[2024-01-04] MEDS ORDERED: Acetaminophen 325 MG TAB PO PRN (17:24)
[2024-01-04] MEDS ORDERED: Dextrose 5% in Water 1,000 ML IV PRN (17:24)
[2024-01-04] MEDS ORDERED: Glucagon 1 MG/ML KIT IM PRN (17:24)
[2024-01-04] MEDS ORDERED: Ondansetron PF 4 MG/2 ML Vial IVP PRN (17:24)
[2024-01-04] MEDS ORDERED: Insulin Lispro 100 UNIT/ML 10 ML VIAL SC PRN (17:24)
[2024-01-04] MEDS ORDERED: Dextrose 50% Abboject 50 ML SYRINGE SLOW IVP PRN (17:24)
[2024-01-04] MEDS ORDERED: Senokot S 8.6-50 MG TAB PO PRN (17:24)
[2024-01-04] MEDS ORDERED: Ondansetron ODT 4 MG TAB PO PRN (17:24)
[2024-01-04] MEDS: Sodium Chloride 0.9% 1,000 ML IV SCH ×2 (18:10→21:30)
[2024-01-04 18:15] LABS: Troponin I Less than 0.010 ng/mL (< 0.028)
[2024-01-04 18:21] VITALS: BMI 24.5
[2024-01-04 18:29] LABS: Glucose POC Confirmation 256 mg/dL (83-110)
[2024-01-04] MEDS: Insulin Regular, Human 100 UNIT/ML 10 ML VIAL IVP SCH (18:30)
[2024-01-04] MEDS ORDERED: FLU (Fluad Triv) TS24-25 (65UP)/MF59C/PF 45 MCG/0.5 ML Syringe IM ONE (19:00)
[2024-01-04] MEDS: Insulin Lispro 100 UNIT/ML 10 ML VIAL SC PRN (21:26)
[2024-01-04] MEDS: hydrALAZINE 20 MG/ML VIAL SLOW IVP PRN (23:58)
[2024-01-05 03:45] LABS: #Basophils 0.03 10x3/uL (0.0-0.2); %Basophils 0.3 % (0.0-1.0); %Eosinophils 2.4 % (0.0-10.0); %Lymphocytes 10.5 % (21.0-51.0); %Monocytes 7.3 % (0.0-10.0); Hematocrit 35.2 % (42.0-52.0); Hemoglobin 11.7 g/dL (14.0-18.0); Mean Corpuscular HGB CONC 33.2 g/dL (32.0-36.0); Mean Corpuscular Volume 93.4 fL (78.0-98.0); Mean Platelet Volume 10.8 fL (7.4-10.4); Platelet Count 263 10x3/uL (130-400); RBC Distribution Width 13.7 % (11.5-14.5); Red Blood Cell (RBC) Count 3.77 mill/uL (4.70-6.10)
[2024-01-05 04:07] LABS: Hemoglobin A1c 9.4 % (4.0-6.0)
[2024-01-05 04:21] LABS: ALT (SGPT) 8 U/L (8-55); AST (SGOT) 15 U/L (5-34); Albumin 2.8 g/dL (3.4-4.8); Alkaline Phosphatase 125 U/L (40-110); Anion Gap 16 mmol/L (10-20); BUN (Urea Nitrogen) 22 mg/dL (8.4-25.7); Bilirubin, Total 0.5 mg/dL (0.2-1.2); Calc. Creatinine Clearance 42 mL/min (70-130); Calcium 8.8 mg/dL (7.8-10.44); Carbon Dioxide 20 mmol/L (23-31); Cardiac Risk 4.6 (Less than 4.5); Chloride 107 mmol/L (98-107); Cholesterol 120 mg/dl (< 200 Desired); Estimated GFR 51; Globulin 4.4 g/dL (2.4-3.5); Glucose 151 mg/dL (83-110); HDL Cholesterol 26 mg/dL (>60 Neg Risk); LDL Cholesterol, Calculated 62 mg/dL; Magnesium 2.1 mg/dL (1.6-2.6); Protein, Total 7.2 g/dL (5.8-8.1); Sodium 139 mmol/L (136-145); Triglycerides 161 mg/dL (Less than 150)
[2024-01-05] MEDS: Lorazepam 2 MG/ML VIAL SLOW IVP PRN (07:55)
[2024-01-05 10:07] VITALS: BMI 24.5
[2024-01-05] MEDS: Aspirin 81 mg Enteric Coated Tablet PO SCH (10:12)
[2024-01-05] MEDS: Clopidogrel Bisulfate 75 MG TAB PO SCH (10:12)
[2024-01-05] MEDS: Ferrous Gluconate 324 MG TAB PO SCH (10:12)
[2024-01-05] MEDS: Ezetimibe 10 MG TAB PO SCH (10:12)
[2024-01-05] MEDS: Atorvastatin Calcium 40 MG TAB PO SCH (10:12)
[2024-01-05] MEDS: Pantoprazole DR 40 MG TAB PO SCH (10:12)
[2024-01-05] MEDS: Empagliflozin 25 MG TAB PO SCH (10:13)
[2024-01-05] MEDS: Escitalopram Oxalate 20 mg Tablet PO SCH (10:13)
[2024-01-05] MEDS: Enoxaparin 40 MG (0.4 mL) SYRINGE SC SCH (10:14)
[2024-01-05] MEDS: Insulin Glargine 30 UNITS/0.3 ML VIAL SC SCH (10:17)
[2024-01-05] MEDS ORDERED: Electrolyte Replacement Protocol 1 EACH FS SCH (10:45)
[2024-01-05] MEDS ORDERED: Electrolyte Replacement Protocol FS PRN (11:45)
[2024-01-05] MEDS: Lorazepam 0.5 MG TAB PO PRN (15:07)
[2024-01-05] MEDS ORDERED: Labetalol HCl 100 MG/20 ML VIAL SLOW IVP PRN (19:01)
[2024-01-05] MEDS ORDERED: hydrALAZINE 20 MG/ML VIAL SLOW IVP PRN (19:01)
[2024-01-05] MEDS: Carvedilol 25 MG TAB PO SCH (20:50)
[2024-01-06 04:44] LABS: Anion Gap 17 mmol/L (10-20); BUN (Urea Nitrogen) 24 mg/dL (8.4-25.7); Calc. Creatinine Clearance 49 mL/min (70-130); Calcium 8.8 mg/dL (7.8-10.44); Carbon Dioxide 20 mmol/L (23-31); Chloride 104 mmol/L (98-107); Estimated GFR 60; Glucose 160 mg/dL (83-110); Potassium 3.8 mmol/L (3.5-5.1); Sodium 137 mmol/L (136-145)
[2024-01-06] MEDS: Insulin Glargine 30 UNITS/0.3 ML VIAL SC SCH (08:19)
[2024-01-06] MEDS: Lisinopril 10 MG TAB PO SCH (08:19)
[2024-01-06 15:36] VITALS: TEMP 98.1
[2024-01-06 16:39] VITALS: BP 148/78
[2024-01-07] MEDS ORDERED: Lisinopril 10 MG TAB PO SCH (09:00)
== END 2024-01-06 17:45 | disposition home or self-care (01) | DRG 64 ==
LOC: SUATTDRO 12:41 → ERS 12:41 → 2SE 17:19 → OBSVTOIN 01-05 10:06
PROVIDERS: ADMIT Internal Medicine; ATTEND Family Medicine
DX: I63.9 Cerebral infarction, unspecified (principal); G92.8 Other toxic encephalopathy; I13.0 Hypertensive heart and chronic kidney disease with heart failure and stage 1 through stage 4 chronic kidney disease, or unspecified chronic kidney disease; C79.51 Secondary malignant neoplasm of bone; I50.22 Chronic systolic (congestive) heart failure; N17.9 Acute kidney failure, unspecified; C34.11 Malignant neoplasm of upper lobe, right bronchus or lung; G81.94 Hemiplegia, unspecified affecting left nondominant side; I42.9 Cardiomyopathy, unspecified; N39.0 Urinary tract infection, site not specified; K55.1 Chronic vascular disorders of intestine; N18.9 Chronic kidney disease, unspecified; E78.5 Hyperlipidemia, unspecified; E11.51 Type 2 diabetes mellitus with diabetic peripheral angiopathy without gangrene; I25.10 Atherosclerotic heart disease of native coronary artery without angina pectoris; E11.65 Type 2 diabetes mellitus with hyperglycemia; R59.0 Localized enlarged lymph nodes; E11.22 Type 2 diabetes mellitus with diabetic chronic kidney disease; F41.9 Anxiety disorder, unspecified; F32.A Depression, unspecified; T50.995A Adverse effect of other drugs, medicaments and biological substances, initial encounter; D63.1 Anemia in chronic kidney disease; I65.23 Occlusion and stenosis of bilateral carotid arteries; E86.0 Dehydration; K21.9 Gastro-esophageal reflux disease without esophagitis; I45.10 Unspecified right bundle-branch block; Z95.1 Presence of aortocoronary bypass graft; Z79.4 Long term (current) use of insulin; Z98.49 Cataract extraction status, unspecified eye; Z79.890 Hormone replacement therapy; Z79.899 Other long term (current) drug therapy; Z79.891 Long term (current) use of opiate analgesic; Z91.018 Allergy to other foods
CPT/HCPCS: 36415; 36416; 70450; 70551; 71045; 71275; 80048; 80053; 80061; 81001; 82010; 82805; 83036; 83735; 83880; 84443; 84484; 85025; 85379; 87086; 93005; 93880; 94760; 96374; 96375; G0378; J0360; J1650; J1815; J2060; J7030; Q9967

== ENCOUNTER 2024-01-20 12:49 | Outpatient (CLI) | payer MEDICARE, OTHER | END 2024-01-20 12:50 | disposition home or self-care (01) | LOC: SCSMRI 12:49 | PROVIDERS: ATTEND Internal Medicine Hematology & Oncology | DX: C34.11 Malignant neoplasm of upper lobe, right bronchus or lung (principal); M89.9 Disorder of bone, unspecified; M48.54XA Collapsed vertebra, not elsewhere classified, thoracic region, initial encounter for fracture | CPT/HCPCS: 70553; 72157; 76376 ==

== ENCOUNTER 2024-02-19 11:51 | Emergency (ER) | payer MEDICARE, OTHER ==
[2024-02-19 15:03] LABS: ALT (SGPT) 14 U/L (8-55); AST (SGOT) 16 U/L (5-34); Albumin 2.7 g/dL (3.4-4.8); Alkaline Phosphatase 111 U/L (40-110); Anion Gap 14 mmol/L (10-20); BUN (Urea Nitrogen) 46 mg/dL (8.4-25.7); Bilirubin, Total 0.4 mg/dL (0.2-1.2); Calc. Creatinine Clearance 0 mL/min (70-130); Carbon Dioxide 28 mmol/L (23-31); Chloride 102 mmol/L (98-107); Estimated GFR 56; Globulin 4.7 g/dL (2.4-3.5); Lipase 31 U/L (8-78); Magnesium 2.6 mg/dL (1.6-2.6); Potassium 4.8 mmol/L (3.5-5.1); Protein, Total 7.4 g/dL (5.8-8.1); Sodium 139 mmol/L (136-145)
[2024-02-19 15:09] LABS: Troponin I 0.016 ng/mL (< 0.028)
[2024-02-19 15:19] LABS: Glucose 225 mg/dL (83-110)
[2024-02-19 15:24] LABS: #Basophils 0.05 10x3/uL (0.0-0.2); %Basophils 2.4 % (0.0-1.0); %Eosinophils 1.9 % (0.0-10.0); %Lymphocytes 10.7 % (21.0-51.0); %Monocytes 5.3 % (0.0-10.0); %Neutrophils 72.9 % (42.0-75.0); Hematocrit 31.4 % (42.0-52.0); Hemoglobin 10.3 g/dL (14.0-18.0); Mean Corpuscular HGB CONC 32.8 g/dL (32.0-36.0); Mean Corpuscular Hemoglobin 30.2 pg (27.0-31.0); Mean Corpuscular Volume 92.1 fL (78.0-98.0); Mean Platelet Volume 11.9 fL (7.4-10.4); Platelet Count 154 10x3/uL (130-400); RBC Distribution Width 14.2 % (11.5-14.5); Red Blood Cell (RBC) Count 3.41 mill/uL (4.70-6.10)
[2024-02-19 15:47] LABS: Band 9 % (5-11); Burr Cells SLIGHT = 2-5 cells HPF (0-1); Eosinophils 2 % (0-10); Large Platelets 27.2 % (0-5); Lymphocytes 4 % (21-51); Metamyelocyte 3 % (0-0); Monocytes 2 % (0-10); Neutrophil 80 % (42-75); Ovalocytes SLIGHT = 2-5 cells HPF (0-1); Platelet Adequacy Comment Platelets Normal; Polychromasia SLIGHT = 2-3 cells HPF (0-2); Smudge Cells 2.9 %
[2024-02-19 16:07] LABS: Bacteria/HPF None Seen HPF (None Seen); Bilirubin Negative (Negative); Blood, Urine Negative (Negative); CAUTI Indications for Culture Alt mental st,lethar; Clarity Clear (Clear); Glucose, Urine (Dipstick) Greater than 1000 mg/dL (Negative); Ketone, Urine Negative (Negative); Leukocyte Negative Leu/uL (Negative); Nitrite Negative (Negative); Protein, Urine (Dipstick) Negative (Neg-Trace); RBC/HPF 0-3 HPF (0-3); Specific Gravity, Urine 1.027 (1.002-1.036); Squamous Epithelial None Seen HPF (0-3); Urobilinogen Normal mg/dL (Less than 2); WBC/HPF 0-3 HPF (0-3)
[2024-02-19 16:08] LABS: Urine Culture Reflex No No
== END 2024-02-19 17:45 | disposition home or self-care (01) ==
LOC: ERS 11:51
DX: R53.1 Weakness (principal); C34.91 Malignant neoplasm of unspecified part of right bronchus or lung; C79.31 Secondary malignant neoplasm of brain; R29.702 NIHSS score 2; I25.10 Atherosclerotic heart disease of native coronary artery without angina pectoris; I11.0 Hypertensive heart disease with heart failure; I50.9 Heart failure, unspecified; E78.00 Pure hypercholesterolemia, unspecified; Z79.4 Long term (current) use of insulin; Z79.82 Long term (current) use of aspirin; Z79.899 Other long term (current) drug therapy; W19.XXXA Unspecified fall, initial encounter; Y93.01 Activity, walking, marching and hiking
CPT/HCPCS: 36415; 70450; 71045; 80053; 81001; 83690; 83735; 83880; 84484; 85025; 93005